=== PATIENT | female | born 1955 | race Caucasian/White ===

== ENCOUNTER 2020-06-12 11:49 | Emergency (ER) | payer OTHER ==
[~2020-06-12] VITALS: Ht 154.9 cm; Wt 91.2 kg
[2020-06-12 12:04] VITALS: Ht 154.9 cm; Wt 91.2 kg
[2020-06-12 12:40] VITALS: BP 152/83
== END 2020-06-12 12:40 | disposition home or self-care (01) ==
LOC: ED 11:49
DX: S80.212A Abrasion, left knee, initial encounter (principal); W01.0XXA Fall on same level from slipping, tripping and stumbling without subsequent striking against object, initial encounter; Y93.89 Activity, other specified; Y92.89 Other specified places as the place of occurrence of the external cause; Y99.8 Other external cause status

== ENCOUNTER 2020-07-11 06:57 | Emergency (ER) | payer OTHER ==
[~2020-07-11] VITALS: Ht 154.9 cm; Wt 91.2 kg
[2020-07-11 07:08] VITALS: BP 145/73; Ht 154.9 cm; Wt 91.2 kg
== END 2020-07-11 08:30 | disposition home or self-care (01) ==
LOC: ED 06:57
DX: K57.12 Diverticulitis of small intestine without perforation or abscess without bleeding (principal); E78.00 Pure hypercholesterolemia, unspecified